=== PATIENT | female | born 1970 | race Caucasian/White ===

== ENCOUNTER 2019-07-17 19:12 | Emergency (ER) | payer OTHER ==
[2019-07-17] MEDS: DIAZEPAM 5 MG TAB PO (20:17)
[2019-07-17] MEDS: ONDANSETRON (ODT) 4 MG TAB ODT (20:17)
[2019-07-17] MEDS: HYDROmorphONE 0.5 MG/0.5 ML SYG IM (20:17)
[2019-07-17] MEDS ORDERED: DIPHENHYDRAMINE 50 MG INJ (21:15)
[2019-07-17] MEDS: predniSONE 20 MG TAB PO (21:32)
[2019-07-17] MEDS: DIPHENHYDRAMINE 50 MG INJ IM (21:32)
== END 2019-07-17 21:36 | disposition home or self-care (01) ==
LOC: E/R 19:12
DX: S86.811A Strain of other muscle(s) and tendon(s) at lower leg level, right leg, initial encounter (principal); M62.838 Other muscle spasm; I10 Essential (primary) hypertension; X58.XXXA Exposure to other specified factors, initial encounter; Y92.9 Unspecified place or not applicable; Z79.82 Long term (current) use of aspirin
CPT/HCPCS: 93971; 96372; 99285-25

== ENCOUNTER 2019-07-22 21:29 | Emergency (ER) | payer OTHER ==
[2019-07-22] MEDS: KETOROLAC 30 MG INJ IM (22:49)
[2019-07-22] MEDS: OXYCODONE/ACETAMINOPHEN (5/325) TAB PO (22:49)
== END 2019-07-23 00:19 | disposition home or self-care (01) ==
LOC: E/R 21:29
DX: R25.2 Cramp and spasm (principal); I10 Essential (primary) hypertension
CPT/HCPCS: 93005; 96372; 99284-25